=== PATIENT | female | born 1935 | race Caucasian/White ===

== ENCOUNTER → 2017-07-11 | Outpatient (CLI) | payer MEDICARE, BC ==
--- NOTE | 2017-07-12 10:09 | RADIOLOGY REPORT PS360 ---
CT ABD PELVIS W/O CONTRAST HISTORY: ACUTE FLANK PAINleft flank pain abdominal pain Patient Age: 81 years: Female Ordering Physician: Sony Lerma MD TECHNIQUE: Helical CT scanning performed at of pelvis with no oral nor IV contrast utilized. Sagittal coronal reconstruction CT workstation COMPARISON :Previous CT abdomen 03/22/2017 and right upper quadrant ultrasound 04/18/2017 FINDINGS . RIGHT KIDNEY Prominent RIGHT hydronephrosis is again noted and unchanged since March, study. . Prominent dilatation of right pelvicalyceal system, right renal pelvis with prominent dilatation of right ureter down to the region of aortic bifurcation. 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 This Appears to be at the L4 level on CT.. This area appears overall fairly stable.- Only question a very subtle progression. Will require ongoing follow-up. 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 Associated lesion of right ureter itself cannot be excluded. Below this level right ureter has a more normal caliber as it continues to the bladder. Stable small 16 mm cyst lateral margin right kidney Right kidney mildly enlarged due to the hydronephrosis with only question some scant cortical thinning in since March LEFT KIDNEY: no hydronephrosis of left kidney no calculi. The left ureter is normal and caliber. It also has a slightly medial course just below the bifurcation but within normal limits. URINARY BLADDER.. Fairly empty but on sagittal images I suggest an slight additional wall thickening at the inferior aspect the urinary bladder. Also On axial image 102 & coronal image 41 there is question of possible small areas of nodularity along the anterior inferior margin of bladder... Suspect the small 13 mm nodule just to the left at the base the bladder on axial image 102 is actually reflects a prominent venous structure as it can be followed superiorly. Possibly these other areas of questionable nodularity related to more prominent pelvic veins.. Veins on either side of the vaginal canal appear to be very slightly more generous today. Equivocal feature and other pelvic pain do not appear to be particularly engorged this could reflect hydration state. However with this area curious fibrosis adjacent possibly compressing inferior IVC if the patient patient develops any swelling in the legs you may want to consider further evaluation IVC.. Pelvis:. A small postmenopausal uterus. Unchanged.. Air noted at superior vaginal vault/ fornix region with question slightly generous vaginal wall thickness. Any discharge or symptoms at this level?. . No adnexal masses at pelvis. No free fluid no free air abdomen or pelvis. Question very subtle hazy appearance along perirectal fascia plane. Nonspecific. Large Bowel: anastomosis of the distal sigmoid colon.-unremarkable. Mild wall thickening just distal to this most likely reflecting lack of distention. Moderate stool is seen throughout the colon most evident at right colon., Ileum appears normal. Small Bowel: appears satisfactory. Diffuse small air-fluid levels. But No dilatation. LOWER CHEST.. 8 mm subpleural nodule at the anterior margin RML. This does definitely appears to be incrementally larger measuring 8 mm today and 5 mm diameter in March (axial image 9, sagittal image 47 ). This requires a follow-up CT chest to further evaluate for other nodules.-Progressing lung nodule Raises possibility of early metastatic disease. Contrast preferred but I see the patient has significant compromised renal function which may prohibit such. . Liver. Scattered hepatic cystic areas are seen throughout liver have not changed appreciably. Since previous March 2017 CT and April ultrasound. Largest lobulated cyst measuring up to 24 mm at periphery of right lobe. There is also cyst at the left lobe, with other small cyst at the right lobe and another adjacent to the hilum of liver. Cholelithiasis again noted. Left adrenal. Slightly plump in generous but unchanged. The spleen unremarkable.. Atherosclerotic calcification aorta. Additionally note generous slight calcification at the origin of the renal arteries bilateral, particularly left. IMPRESSION No acute findings in the abdomen or pelvis. 1. Prominent right hydronephrosis again seen. Proximal ureter is dilated down to an area of retroperitoneal density (, ~L4 level, just to the right of aortic bifurcation). 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 This small area of density fairly stable if not perhaps incrementally more evident vs March on axial images. Findings here warrant ongoing urology follow-up 2. The left kidney and ureter appear normal. No findings to account for the left-sided flank pain today's study otherwise seen. 3. Slight progression of now 8 mm pulmonary nodule anterior margin RML. Since March. Suggest CT chest follow-up at some point in near future to evaluate for any other pulmonary nodules Subtle features described to be kept in mind and warrant follow-up: 3. Question/Suggestion of mild wall thickening at the inferior urinary bladder wall. This may be exaggerated by lack of distention 4.. Suggestion subtle increased prominence of pelvic veins today. May merely reflect more optimal hydration state... Subtle observation but noted . ( However If patient develops any leg swelling or progressive pelvic/leg pain, further evaluation potential IVC compression due to the above features may need to be considered) Question Upper normal wall thickness vaginal wall/vaginal vault which could be related 5.. Intact Anastomosis distal sigmoid colon. 6 Cholelithiasis. 7. Numerous stable hepatic cyst s .8 Cardiomegaly
== END ==
LOC: RAD 09:09
DX: R10.31 Right lower quadrant pain (principal)

== ENCOUNTER → 2017-07-19 | Outpatient (CLI) | payer MEDICARE, BC ==
[~2017-07-19] MED LIST: AMARYL 4MG. TAB4 MG PO; CYCLOBENZAPRINE10 M2 PO; GABAPENTIN 100100 MG PO; GLIMEPIRIDE 4MG4 MG PO; HYDROCHLOROTHIA25 M1 PO; HYDROCODONE-APA1 TA1 PO; JANUVIA100 MG PO; LISINOPRIL40 MG PO; METFORMIN ER500 M1 PO; NAPROXEN SODIU500 MG PO; OMEPRAZOLE40 MG PO; PIOGLITAZONE15 MG PO; SIMVASTATIN40 MG PO; VITAMIN D50000 I1 PO; ZOFRAN4 MG PO
--- NOTE | 2017-07-19 20:13 | RADIOLOGY REPORT PS360 ---
US PELVIS (NO FETUS) HISTORY: Pelvic mass evaluation LEG EDEMA,ABN CT ORDERING PHYSICIAN: Sony Lerma MD PATIENT AGE: 81 years COMPARISON: None FINDINGS: The uterus measures 7 x 3 x 4 cm. No endometrial thickening. There is peripheral calcification within the uterus. The right ovary is 2.6 x 1.8 cm. Left ovary is 1.7 x 1.3 cm. No cul-de-sac fluid. IMPRESSION: Senescent appearing uterus. No pelvic mass or abnormal fluid collection
--- NOTE | 2017-07-21 07:17 | RADIOLOGY REPORT PS360 ---
CT CHEST W/O CONTRAST HISTORY: RT LUNG NODULE, solitary pulmonary nodule, follow-up nodule right lung base ORDERING PHYSICIAN: Sony Lerma MD PATIENT AGE: 81 years TECHNIQUE: Helical acquisition obtained following the intravenous administration of 75 mL of Isovue 370 .. Axial, sagittal, and coronal reformatted images are generated and reviewed. COMPARISON: 07-26 FINDINGS: Atherosclerotic changes involve the thoracic aorta with mild dilatation of the apex of the aortic arch at 3 cm. Severe coronary artery calcifications are present and there is calcification of the mitral valve. There is ectasia of the great vessels There is a 10 mm noncalcified nodule in the right middle lobe anteriorly. A noncalcified 6 mm nodule present in the right upper lobe posteriorly. On the left there is a 6 mm noncalcified nodule in the left upper lobe anteriorly and a 12 mm noncalcified nodule in the left upper lobe medially. Atelectatic changes are present in the medial aspect of the right middle lobe and the lingula. No effusions or lobar consolidation. No obvious mediastinal or hilar adenopathy. Calcified nodes are present in the hilum. There is a small hernia. Upper abdominal images once again show multiple hypodense of hepatic lesions. Right hydronephrosis also noted. No acute bony anomalies. IMPRESSION: 1. Multiple bilateral noncalcified pulmonary nodules as described above metastatic disease is a consideration. Does the patient have a known primary carcinoma? Noncalcified granulomas or postinflammatory nodules are also considered. 2. Coronary artery disease
== END ==
LOC: RAD 07-18 09:30
DX: R93.5 Abnormal findings on diagnostic imaging of other abdominal regions, including retroperitoneum (principal); R60.0 Localized edema; R91.1 Solitary pulmonary nodule